=== PATIENT | male | born 1990 | race Caucasian/White ===

== ENCOUNTER 2024-04-14 10:56 | Inpatient (IN) | payer OTHER, MEDICAID, SELFPAY ==
[2024-04-14] VITALS (91 sets, daily range): BP systolic 121–159; BP diastolic 69–107; PULSE 107–137; RESP 6–52; TEMP 36.6–36.8; O2SAT 85–100; BMI 45.1; BMI 44.4
--- NOTE | 2024-04-14 11:13 | EKG_ITS ---
[address] [address] Test Date: 2024-04-14 Pat Name: Roger Mcclelland Department: Room: Gender: Male Media Operator: LAVERN : 1990 Requested By: Order Number: [id number] Reading MD: Jason Chisholm Measurements Intervals [place] Rate: 122 P: 48 [place]: 144 QRS: 68 QRSD: 96 T: 52 QT: 330 QTc: 470 Interpretive Statements Sinus tachycardia Possible Left atrial enlargement Electronically Signed On 04-14-2024 16:28:18 PST by Jason Chisholm
--- NOTE | 2024-04-14 11:15 | ED_ITS ---
HPI - General Adult General Chief complaint: Shortness of Breath/Dyspnea Stated complaint: SOB Abdominal Swelling sent from PCP Time Seen by Provider: 04/14/24 11:12 History of Present Illness HPI narrative: 34-year-old gentleman with a history of alcohol and methamphetamine use disorder, lives on [facility], has no known medical problems and does not take prescription medications. Presents complaining of 2 weeks of sweats, increasing dyspnea including orthopnea, increasing abdominal girth, lower extremity edema. He is not reporting significant headaches, no vomiting, no diarrhea. Has not noticed palpitations does not recognize that his heart rate currently is in the 120 range. Related Data Allergies Allergy/AdvReac Type Severity Reaction Status Date / Time No Known Drug Allergies Allergy Verified 04/14/24 11:08 Review of Systems Review of Systems Narrative: Pertinent positive and negative findings as per HPI Patient History Social History Smoking Status: Unknown if ever smoked Exam Initial Vital Signs Initial Vital Signs: Vital Signs Temperature 97.9 F 04/14/24 11:00 Pulse Rate 128 H 04/14/24 11:00 Respiratory Rate 18 04/14/24 11:00 Blood Pressure 142/84 H 04/14/24 11:00 Pulse Oximetry 100 04/14/24 11:00 Oxygen Delivery Method Room Air 04/14/24 11:00 General: Chronically ill-appearing gentleman BMI of 45 kilos slightly diaphoretic, pale, able to speak in complete sentences, fully cooperative with the exam HEENT: Moist mucous membranes, normal sclera with reactive pupils, Neck: Body habitus makes it difficult to evaluate JVD. He does not have cervical adenopathy Respiratory: Lungs with rhonchi in the right base and scattered wheezes in the apices bilaterally Cardiac: Tachycardic, again body habitus limits exam but I am concerned that he does have soft systolic murmur Abdomen: The anterior abdominal wall is slightly erythematous without being warm to the touch. No tenderness to palpation, not distended Skin: Warm and dry, no rashes or evidence of ?skin picking Neurologic: Grossly neurologically intact with no obvious asymmetries or abnormalities Extremities: No trauma, 2+ lower extremity edema Psych: Cooperative, appropriate insight and affect Course Orders Ordered: ED Orders 04/14/24 11:16 XR chest 1V Stat EKG-12 Lead Stat Measure peak expiratory flow ONCE RT Consult Eval and Treat NOW 04/14/24 11:28 EKG-12 Lead Stat 04/14/24 11:34 Complete Blood Count AUTO DIFF Stat Comprehensive Metabolic Panel Stat D Dimer Stat Lactate (Lactic Acid) Stat Lipase Stat Magnesium Stat NT-proBNP (BNP-Adult 18+) Stat Procalcitonin Stat Prothrombin Time INR Stat Troponin I Stat 04/14/24 11:45 Blood Culture Stat 04/14/24 11:55 Ictotest Urine Stat Urinalysis and Microscopic Stat 04/14/24 14:05 CT angio chest PE protocol Stat Vital Signs Vital signs: Vital Signs - 8 hr 04/14/24 11:00 04/14/24 11:06 04/14/24 11:06 Temperature 97.9 F Pulse Rate 128 H 132 H Respiratory Rate 18 Blood Pressure 142/84 H 142/84 H Pulse Oximetry 100 97 Oxygen Delivery Method Room Air Oxygen Flow Rate 04/14/24 11:10 04/14/24 11:15 04/14/24 11:20 Temperature Pulse Rate 124 H 127 H 128 H Respiratory Rate 16 21 Blood Pressure Pulse Oximetry 98 98 98 Oxygen Delivery Method Oxygen Flow Rate 04/14/24 11:25 04/14/24 11:30 04/14/24 11:35 Temperature Pulse Rate 121 H 122 H 120 H Respiratory Rate 24 14 21 Blood Pressure Pulse Oximetry 98 93 97 Oxygen Delivery Method Oxygen Flow Rate 04/14/24 11:40 04/14/24 11:43 04/14/24 11:43 Temperature Pulse Rate 122 H 118 H Respiratory Rate 9 L 12 Blood Pressure 143/93 H Pulse Oximetry 97 97 Oxygen Delivery Method Oxygen Flow Rate 04/14/24 11:45 04/14/24 11:45 04/14/24 11:50 Temperature Pulse Rate 119 H 117 H Respiratory Rate 13 22 Blood Pressure 141/95 H Pulse Oximetry 97 98 Oxygen Delivery Method Oxygen Flow Rate 04/14/24 11:50 04/14/24 11:55 04/14/24 11:56 Temperature Pulse Rate 137 H 132 H Respiratory Rate Blood Pressure 142/102 H Pulse Oximetry 91 100 Oxygen Delivery Method Oxygen Flow Rate 04/14/24 11:56 04/14/24 12:00 04/14/24 12:01 Temperature Pulse Rate 121 H 122 H Respiratory Rate 33 H 26 H Blood Pressure 143/94 H Pulse Oximetry 98 99 Oxygen Delivery Method Oxygen Flow Rate 04/14/24 12:01 04/14/24 12:05 04/14/24 12:05 Temperature Pulse Rate 121 H Respiratory Rate 17 Blood Pressure 134/88 137/89 Pulse Oximetry 96 Oxygen Delivery Method Oxygen Flow Rate 04/14/24 12:10 04/14/24 12:11 04/14/24 12:11 Temperature Pulse Rate 119 H 121 H Respiratory Rate 17 24 Blood Pressure 144/94 H Pulse Oximetry 96 92 Oxygen Delivery Method Oxygen Flow Rate 04/14/24 12:15 04/14/24 12:15 04/14/24 12:20 Temperature Pulse Rate 120 H Respiratory Rate 15 Blood Pressure 149/95 H 139/90 Pulse Oximetry 95 Oxygen Delivery Method Oxygen Flow Rate 04/14/24 12:20 04/14/24 12:25 04/14/24 12:26 Temperature Pulse Rate 117 H 119 H 117 H Respiratory Rate 25 H 20 36 H Blood Pressure Pulse Oximetry 91 97 87 L Oxygen Delivery Method Oxygen Flow Rate 04/14/24 12:26 04/14/24 12:30 04/14/24 12:30 Temperature Pulse Rate 116 H Respiratory Rate 35 H Blood Pressure 159/102 H 149/89 H Pulse Oximetry 97 Oxygen Delivery Method Oxygen Flow Rate 04/14/24 12:35 04/14/24 12:35 04/14/24 12:40 Temperature Pulse Rate 116 H 117 H Respiratory Rate 23 17 Blood Pressure 143/93 H Pulse Oximetry 85 L 95 Oxygen Delivery Method Oxygen Flow Rate 04/14/24 12:40 04/14/24 12:45 04/14/24 12:48 Temperature Pulse Rate 115 H 118 H Respiratory Rate 23 52 H Blood Pressure 145/89 H Pulse Oximetry 93 96 Oxygen Delivery Method Oxygen Flow Rate 04/14/24 12:48 04/14/24 12:50 04/14/24 12:50 Temperature Pulse Rate 117 H Respiratory Rate 24 Blood Pressure 133/92 H 125/91 H Pulse Oximetry 97 Oxygen Delivery Method Oxygen Flow Rate 04/14/24 12:55 04/14/24 12:55 04/14/24 13:00 Temperature Pulse Rate 113 H 113 H Respiratory Rate 28 H 18 Blood Pressure 125/88 Pulse Oximetry 92 97 Oxygen Delivery Method Oxygen Flow Rate 04/14/24 13:00 04/14/24 13:05 04/14/24 13:05 Temperature Pulse Rate 117 H Respiratory Rate 32 H Blood Pressure 121/85 127/91 H Pulse Oximetry 93 Oxygen Delivery Method Oxygen Flow Rate 04/14/24 13:10 04/14/24 13:11 04/14/24 13:11 Temperature Pulse Rate 115 H 116 H Respiratory Rate 34 H 26 H Blood Pressure 129/88 Pulse Oximetry 89 L 90 L Oxygen Delivery Method Oxygen Flow Rate 04/14/24 13:15 04/14/24 13:15 04/14/24 13:20 Temperature Pulse Rate 115 H 112 H Respiratory Rate 37 H 30 H Blood Pressure 132/95 H Pulse Oximetry 87 L 96 Oxygen Delivery Method Oxygen Flow Rate 04/14/24 13:20 04/14/24 13:25 04/14/24 13:25 Temperature Pulse Rate 115 H Respiratory Rate 35 H Blood Pressure 140/100 H 145/99 H Pulse Oximetry 88 L Oxygen Delivery Method Oxygen Flow Rate 04/14/24 13:30 04/14/24 13:30 04/14/24 13:35 Temperature Pulse Rate 115 H 116 H Respiratory Rate 27 H 41 H Blood Pressure 153/96 H Pulse Oximetry 87 L 91 Oxygen Delivery Method Oxygen Flow Rate 04/14/24 13:36 04/14/24 13:36 04/14/24 13:40 Temperature Pulse Rate 116 H 114 H Respiratory Rate 30 H 35 H Blood Pressure 125/86 Pulse Oximetry 95 94 Oxygen Delivery Method Oxygen Flow Rate 04/14/24 13:40 04/14/24 13:45 04/14/24 13:46 Temperature Pulse Rate 118 H 116 H Respiratory Rate Blood Pressure 129/79 Pulse Oximetry 90 L 92 Oxygen Delivery Method Oxygen Flow Rate 04/14/24 13:46 04/14/24 13:50 04/14/24 13:50 Temperature Pulse Rate 115 H Respiratory Rate Blood Pressure 136/98 H 145/93 H Pulse Oximetry 96 Oxygen Delivery Method Nasal Cannula Oxygen Flow Rate 2 04/14/24 13:55 04/14/24 13:55 04/14/24 14:01 Temperature Pulse Rate 110 H 119 H Respiratory Rate Blood Pressure 146/92 H Pulse Oximetry 92 96 Oxygen Delivery Method Nasal Cannula Nasal Cannula Oxygen Flow Rate 2 2 04/14/24 14:01 04/14/24 14:05 04/14/24 14:06 Temperature Pulse Rate 108 H Respiratory Rate Blood Pressure 151/69 H 134/86 Pulse Oximetry 99 Oxygen Delivery Method Nasal Cannula Oxygen Flow Rate 2 04/14/24 14:06 04/14/24 14:10 04/14/24 14:11 Temperature Pulse Rate 111 H 116 H Respiratory Rate 20 28 H Blood Pressure 131/83 Pulse Oximetry 99 98 Oxygen Delivery Method Nasal Cannula Nasal Cannula Oxygen Flow Rate 2 2 04/14/24 14:11 04/14/24 14:15 04/14/24 14:16 Temperature Pulse Rate 115 H 115 H 115 H Respiratory Rate 16 28 H 37 H Blood Pressure Pulse Oximetry 98 96 96 Oxygen Delivery Method Nasal Cannula Nasal Cannula Nasal Cannula Oxygen Flow Rate 2 2 2 04/14/24 14:16 04/14/24 14:20 04/14/24 14:20 Temperature Pulse Rate 114 H Respiratory Rate 25 H Blood Pressure 138/73 128/82 Pulse Oximetry 97 Oxygen Delivery Method Nasal Cannula Oxygen Flow Rate 2 04/14/24 14:32 04/14/24 14:35 04/14/24 14:40 Temperature Pulse Rate 120 H 116 H 118 H Respiratory Rate 16 32 H Blood Pressure Pulse Oximetry 94 100 98 Oxygen Delivery Method Nasal Cannula Oxygen Flow Rate 2 04/14/24 14:45 04/14/24 14:45 04/14/24 14:51 Temperature Pulse Rate 114 H 115 H Respiratory Rate 19 20 Blood Pressure 136/83 Pulse Oximetry 96 97 Oxygen Delivery Method Oxygen Flow Rate 04/14/24 14:51 04/14/24 14:55 04/14/24 14:55 Temperature Pulse Rate 114 H Respiratory Rate 29 H Blood Pressure 142/86 H 140/95 H Pulse Oximetry 96 Oxygen Delivery Method Oxygen Flow Rate 04/14/24 15:00 04/14/24 15:00 04/14/24 15:06 Temperature Pulse Rate 115 H Respiratory Rate 28 H Blood Pressure 143/92 H 145/106 H Pulse Oximetry 98 Oxygen Delivery Method Oxygen Flow Rate 04/14/24 15:06 04/14/24 15:10 04/14/24 15:10 Temperature Pulse Rate 118 H 118 H Respiratory Rate 22 27 H Blood Pressure 142/91 H Pulse Oximetry 93 99 Oxygen Delivery Method Oxygen Flow Rate 04/14/24 15:15 04/14/24 15:15 04/14/24 15:21 Temperature Pulse Rate 117 H 116 H Respiratory Rate 30 H Blood Pressure 129/92 H Pulse Oximetry 97 95 Oxygen Delivery Method Oxygen Flow Rate 04/14/24 15:21 04/14/24 15:26 04/14/24 15:26 Temperature Pulse Rate 116 H Respiratory Rate 20 Blood Pressure 139/96 H 146/87 H Pulse Oximetry 95 Oxygen Delivery Method Oxygen Flow Rate 04/14/24 15:30 04/14/24 15:31 04/14/24 15:31 Temperature Pulse Rate 115 H 115 H Respiratory Rate 23 27 H Blood Pressure 140/107 H Pulse Oximetry 95 93 Oxygen Delivery Method Oxygen Flow Rate 04/14/24 15:35 04/14/24 15:35 04/14/24 15:40 Temperature Pulse Rate 117 H 116 H Respiratory Rate 25 H 26 H Blood Pressure 142/95 H Pulse Oximetry 96 96 Oxygen Delivery Method Oxygen Flow Rate 04/14/24 15:40 04/14/24 15:45 04/14/24 15:45 Temperature Pulse Rate 116 H Respiratory Rate 19 Blood Pressure 132/91 H 124/86 Pulse Oximetry 98 Oxygen Delivery Method Nasal Cannula Oxygen Flow Rate 2 04/14/24 15:51 04/14/24 15:51 04/14/24 15:55 Temperature Pulse Rate 107 H 111 H Respiratory Rate 30 H 28 H Blood Pressure 130/91 H Pulse Oximetry 97 98 Oxygen Delivery Method Nasal Cannula Nasal Cannula Oxygen Flow Rate 2 2 04/14/24 15:55 04/14/24 16:00 04/14/24 16:00 Temperature Pulse Rate 114 H Respiratory Rate 31 H Blood Pressure 129/79 138/89 Pulse Oximetry Oxygen Delivery Method Oxygen Flow Rate 04/14/24 16:06 04/14/24 16:06 04/14/24 16:10 Temperature Pulse Rate 117 H 115 H Respiratory Rate 27 H 32 H Blood Pressure 131/97 H Pulse Oximetry 98 95 Oxygen Delivery Method Nasal Cannula Nasal Cannula Oxygen Flow Rate 2 2 04/14/24 16:10 04/14/24 16:15 04/14/24 16:15 Temperature Pulse Rate 116 H Respiratory Rate 30 H Blood Pressure 129/85 123/83 Pulse Oximetry 97 Oxygen Delivery Method Nasal Cannula Oxygen Flow Rate 2 Medical Decision Making Lab Data 04/14/24 11:34 04/14/24 11:34 Labs: Lab Results 04/14/24 04/14/24 Range/Units 11:34 11:55 WBC 11.7 H (4.5-11.0) X10^3/uL RBC 4.70 (4.5-5.9) X10^6/uL Hgb 13.0 L (13.5-17.5) g/dL Hct 41.0 (41-53) % MCV 87.4 (80-100) fL MCH 27.7 (26-34) PG MCHC 31.7 (30-36) % RDW 16.9 H (11.6-14.8) % Plt Count 369 (150-400) X10^3/uL Neut % (Auto) 67.6 (50-75) % Lymph % (Auto) 20.5 L (25-40) % [place] % (Auto) 9.7 (3-14) % Eos % (Auto) 1.5 L (2-4) % Baso % (Auto) 0.7 (0-2) % Neut # (Auto) 7900 H (0242-3355) /uL Lymph # (Auto) 2400 (6456-3543) /uL [place] # (Auto) 1100 H (0-900) /uL Eos # (Auto) 200 (0-450) /uL Baso # (Auto) 100 (0-100) /uL PT 14.2 H (9.4-12.5) SECONDS INR 1.3 (0.9-1.3) D-Dimer 1383 H (<500) ng/ml Sodium 139 (137-145) mmol/L Potassium 3.8 (3.4-5.1) mmol/L Chloride 107 (98-107) mmol/L Carbon Dioxide 24 (22-32) mmol/L BUN 20 (9-20) mg/dL Creatinine 1.32 H (0.66-1.25) mg/dL Estimated GFR > 60 (>60) mL/min BUN/Creatinine Ratio 15.2 (6-22) Glucose 108 H (70-100) mg/dL Lactate 1.4 (0.7-2.1) mmol/L Calcium 9.1 (8.4-10.2) mg/dL Magnesium 2.3 (1.6-2.3) mg/dL Total Bilirubin 1.0 (0.2-1.3) mg/dL AST 38 (17-59) IU/L ALT 39 (<50) IU/L Alkaline Phosphatase 87 (38-126) U/L Troponin I 0.015 (0.01-0.034) ng/mL NT-Pro-B Natriuret Pep 8380 H (<125) pg/mL Total Protein 6.7 (6.3-8.2) g/dL Albumin 4.0 (3.5-5.0) g/dL Globulin 2.7 (1.7-4.1) g/dL Albumin/Globulin Ratio 1.5 (1.0-2.8) Lipase 82 (23-300) U/L Procalcitonin 0.081 (<0.5) ng/mL Urine Color Yellow Urine Appearance Clear Urine pH 5.5 (4.5-8.0) Ur Specific [place] 1.025 (1.000-1.035) Urine Protein 1+ H (Negative) Urine Glucose (UA) Negative (Negative) g/dL Urine Ketones Negative (NEGATIVE) Urine Occult Blood Negative (Negative) Urine Nitrate Negative (Negative) Urine Bilirubin 1+ H (NEGATIVE) Ur Bilirubin Confirm Negative (Negative) Urine Urobilinogen 1.0 (0.2) E.U./dL Ur Leukocyte Esterase Negative (NEGATIVE) Urine RBC None seen (0-5/HPF) Urine WBC None seen (0-5/HPF) Ur Squamous Epith Cells None seen (0-5/HPF) Urine Bacteria None seen (None) Urine Mucus 1+ H (Negative) Ur Culture Indicated? Cult not indicated Vol Urine Centrifuged 10ml (spun) Imaging Data CT PE study: Radiologist's Impression: PROCEDURE: CT ANGIO CHEST PE PROTOCOL INDICATIONS: elevated d dimer, tachycardia TECHNIQUE: After the administration of intravenous contrast, 2 mm thick sections acquired from the pulmonary apices to the posterior costophrenic angles. 3-dimensional maximum intensity projection (MIP) coronal and sagittal reformats were then acquired through the thorax. For radiation dose reduction, the following was used: automated exposure control, adjustment of mA and/or kV according to patient size. COMPARISON: [facility], CR, XR CHEST 1V, 04/14/2024, 11:21. FINDINGS: Image quality: Diagnostic. Pulmonary arteries: Pulmonary arteries are normal in size, and demonstrate no intraluminal filling defects to suggest central pulmonary embolism. Lower Neck: No enlarged lymph nodes. Thyroid: No thyroid nodules which require sonographic follow up, per consensus guidelines. Axillae: No enlarged lymph nodes. Chest Wall: Unremarkable. Bones: Unremarkable. Lungs and Pleura: No pneumothorax or left-sided pleural effusions. Small right pericardial effusion No significant consolidation or suspicious nodules but there is a slight degree of generalized alveolar edema. Heart: Heart size is globally enlarged. There is a small pericardial effusion. Thoracic Vessels: No aortic aneurysm. Mediastinum and Briana: No enlarged lymph nodes. Esophagus: No wall thickening. No hiatal hernia. Upper Abdomen: Visualized upper abdomen solid organs and bowel loops appear normal. IMPRESSION: No pulmonary embolus. Global cardiomegaly, mild pulmonary edema, mild pericardial and right pleural effusion. Dictated by: David Brandon M.D. on 04/14/2024 at 14:54 MDM Narrative Medical decision making narrative: CC: Fevers, shortness of breath Complicating co-morbidities: Polysubstance use including opioids, alcohol, methamphetamine Data collected from: patient Social determinants of health that may influence the patients condition: Lives on [facility] Medical records reviewed: None are available Differential considered: Sepsis, right lower lobe pneumonia, congestive heart failure, cardiomyopathy, pericardial effusion, endocarditis, acute liver failure, acute renal failure, pulmonary embolism Exam documented above, pertinent findings include: BMI of 45 kilos speaking in full sentences significant edema to the lower extremities, belly is large but soft and nondistended. Question of systolic ejection murmur, rhonchi right base Lab Test results independently reviewed as above. Pertinent findings: CBC shows no anemia, white count at 11.7 without left shift and normal platelets Chemistries are notable for a creatinine at 1.3 GFR is still greater than 60. ProBNP is elevated at 8308 Troponin is undetectable D-dimer is elevated at 1383 Independently reviewed EKG: Sinus tachycardia at a rate of 122. Repolarization abnormalities, question left atrial enlargement, no acute ischemic findings Imaging studies independently reviewed: Chest x-ray shows no acute pulmonary process CT angiogram does not show pulmonary embolism, he does have cardiomegaly, small pericardial small pleural effusion and interstitial fullness consistent with congestive heart failure Treatments: IV Lasix Re-evaluations: Patient desats with any type of sleeping. Suspect he has significant sleep apnea. Oxygen is placed for comfort. In light of his elevated D-dimer CT angiogram is ordered Discussion: 34-year-old gentleman with increasing shortness of breath examined findings are most consistent with congestive heart failure likely multifactorial but suspect his chronic methamphetamine and alcohol use is contributing. He complains of sweats for the last 2 weeks and I was initially concerned for infectious etiology including endocarditis. Given his lab studies I have less concern for that at this point. There was no evidence of pulmonary embolism, CT angiogram confirms cardiomegaly, small pleural effusion and small pericardial effusion. There is no evidence of consolidative pneumonia sepsis. Possibility of a viral myocarditis is entertained, there was no evidence of acute coronary syndrome currently. His creatinine is minimally elevated with GFR maintained above 60 40 mg of IV Lasix as initiated in the emergency department. Care is reviewed with Dr. Chisholm, hospitalist patient will be admitted for further evaluation of his undifferentiated heart failure. Findings reviewed with the patient in his mother. Patient is agreeable to hospitalization, questions are answered. Discharge Plan Departure Patient Disposition: Admitted As Inpatient Clinical Impression: Pleural effusion, Acute pericardial effusion, Alcohol use disorder, Methamphetamine use disorder, moderate, dependence Acute congestive heart failure Qualifiers: Heart failure type: unspecified Qualified Code(s): I50.9 - Heart failure, unspecified Referrals: Jeb Powers MD [Primary Care Provider] -
--- NOTE | 2024-04-14 11:16 | DI.RAD.S_ITS ---
PROCEDURE: XR CHEST 1V INDICATIONS: Shortness of breath TECHNIQUE: One view of the chest was acquired. COMPARISON: None. FINDINGS: Surgical changes and devices: None. Lungs and pleura: Lungs are clear. No pleural effusions or pneumothorax. Mediastinum: Mediastinal contours appear normal. Heart size is enlarged. Bones and chest wall: No suspicious bony lesions. Overlying soft tissues appear unremarkable. IMPRESSION: No acute pulmonary process. Dictated by: Lizzeth Roman M.D. on 04/14/2024 at 11:58 Approved by: Lizzeth Roman M.D. on 04/14/2024 at 11:58
--- NOTE | 2024-04-14 11:43 | PC.NURSE ---
respiratory therapy called for eval and Juanita RT came and assessed patient.
--- NOTE | 2024-04-14 11:45 | PC.NURSE ---
Patient states that he smoked meth at 6am this morning to help with my breathing. Patient denies other drugs besides meth and marijauna. 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
[2024-04-14 12:01] LABS: Add Manual Diff / Slide Review NO; Basophils Absolute Auto 100 /uL (0-100); Basophils Percent Auto 0.7 % (0-2); Eosinophils Absolute Auto 200 /uL (0-450); Eosinophils Percent Auto 1.5 % (2-4); Lymphocytes Absolute Auto 2400 /uL (1100-4500); Lymphocytes Percent Auto 20.5 % (25-40); Mean Corpuscular HGB Conc 31.7 % (30-36); Mean Corpuscular Hemoglobin 27.7 PG (26-34); Mean Corpuscular Volume 87.4 fL (80-100); Monocytes Absolute Auto 1100 /uL (0-900); Monocytes Percent Auto 9.7 % (3-14); Neutrophils Absolute Auto 7900 /uL (1500-7000); Neutrophils Percent Auto 67.6 % (50-75); Platelet Count 369 X10^3/uL (150-400); Red Cell Distribution Width 16.9 % (11.6-14.8); White Blood Cell Count 11.7 X10^3/uL (4.5-11.0)
[2024-04-14 12:07] LABS: Appearance Urine UA CLEAR; Bilirubin Urine UA 1+ (NEGATIVE); Color Urine UA YELLOW; Glucose Urine UA NEGATIVE (Negative); Ketones Urine UA NEGATIVE (NEGATIVE); Leukocyte Esterase Urine UA NEGATIVE (NEGATIVE); Nitrite Urine UA NEGATIVE (Negative); Occult Blood Urine UA NEGATIVE (Negative); Protein Urine UA 1+ (Negative); Specific Gravity Urine UA 1.025 (1.000-1.035); pH Urine UA 5.5 (4.5-8.0)
[2024-04-14 12:08] LABS: INR 1.3 (0.9-1.3); Prothrombin Time 14.2 SECONDS (9.4-12.5)
[2024-04-14 12:09] LABS: Urine Volume 10mL (spun)
[2024-04-14 12:10] LABS: Ictotest Urine Negative (Negative)
[2024-04-14 12:12] LABS: Bacteria Urine None Seen; Culture Indicated Urine Cult Not Indicated; Mucus Urine 1+ (Negative); RBC Urine None Seen (0-5/HPF); Squamous Epithelial Cell Urine None Seen (0-5/HPF); WBC Urine None Seen (0-5/HPF)
[2024-04-14 12:14] LABS: Lactate (Lactic Acid) 1.4 mmol/L (0.7-2.1)
[2024-04-14 12:15] LABS: Alanine Aminotransferase 39 IU/L (<50); Albumin Globulin Ratio 1.5 (1.0-2.8); Alkaline Phosphatase 87 U/L (38-126); Aspartate Aminotransferase 38 IU/L (17-59); BUN Creatinine Ratio 15.2 (6-22); Blood Urea Nitrogen 20 mg/dL (9-20); Calcium 9.1 mg/dL (8.4-10.2); Carbon Dioxide 24 mmol/L (22-32); Chloride 107 mmol/L (98-107); Estimated Glomerular Filt Rate > 60 mL/min (>60); Globulin 2.7 g/dL (1.7-4.1); Glucose 108 mg/dL (70-100); HEMOLYSIS < 15 (0-50); Lipase 82 U/L (23-300); Magnesium 2.3 mg/dL (1.6-2.3); Potassium 3.8 mmol/L (3.4-5.1); Sodium 139 mmol/L (137-145); Total Protein 6.7 g/dL (6.3-8.2)
[2024-04-14 12:17] LABS: D Dimer 1383 ng/ml (<500)
[2024-04-14 12:24] LABS: NT-proBNP (BNP-Adult 18+) 8380 pg/mL (<125)
[2024-04-14 12:27] LABS: Troponin I 0.015 ng/mL (0.01-0.034)
[2024-04-14 12:31] LABS: Procalcitonin 0.081 ng/mL (<0.5)
--- NOTE | 2024-04-14 14:05 | DI.CT.S_ITS ---
PROCEDURE: CT ANGIO CHEST PE PROTOCOL INDICATIONS: elevated d dimer, tachycardia TECHNIQUE: After the administration of intravenous contrast, 2 mm thick sections acquired from the pulmonary apices to the posterior costophrenic angles. 3-dimensional maximum intensity projection (MIP) coronal and sagittal reformats were then acquired through the thorax. For radiation dose reduction, the following was used: automated exposure control, adjustment of mA and/or kV according to patient size. COMPARISON: [facility], CR, XR CHEST 1V, 04/14/2024, 11:21. FINDINGS: Image quality: Diagnostic. Pulmonary arteries: Pulmonary arteries are normal in size, and demonstrate no intraluminal filling defects to suggest central pulmonary embolism. Lower Neck: No enlarged lymph nodes. Thyroid: No thyroid nodules which require sonographic follow up, per consensus guidelines. Axillae: No enlarged lymph nodes. Chest Wall: Unremarkable. Bones: Unremarkable. Lungs and Pleura: No pneumothorax or left-sided pleural effusions. Small right pericardial effusion No significant consolidation or suspicious nodules but there is a slight degree of generalized alveolar edema. Heart: Heart size is globally enlarged. There is a small pericardial effusion. Thoracic Vessels: No aortic aneurysm. Mediastinum and Briana: No enlarged lymph nodes. Esophagus: No wall thickening. No hiatal hernia. Upper Abdomen: Visualized upper abdomen solid organs and bowel loops appear normal. IMPRESSION: No pulmonary embolus. Global cardiomegaly, mild pulmonary edema, mild pericardial and right pleural effusion. Dictated by: David Brandon M.D. on 04/14/2024 at 14:54 Approved by: David Brandon M.D. on 04/14/2024 at 14:58
--- NOTE | 2024-04-14 14:47 | EKG_ITS ---
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
[2024-04-14] MEDS: FUROSEMIDE 40 MG/4 ML VIAL IV ×2 (17:03→23:46)
--- NOTE | 2024-04-14 17:41 | PM.HP.1 ---
History of Present Illness History of Present Illness Date Patient Seen: 04/14/24 Time Patient Seen: 17:42 Chief complaint: SOB Abdominal Swelling sent from PCP Narrative: From ED provider: 34-year-old gentleman with a history of alcohol and methamphetamine use disorder, lives on [address], has no known medical problems and does not take prescription medications. Presents complaining of 2 weeks of sweats, increasing dyspnea including orthopnea, increasing abdominal girth, lower extremity edema. He is not reporting significant headaches, no vomiting, no diarrhea. Has not noticed palpitations does not recognize that his heart rate currently is in the 120 range. Additional information: The patient lives on [address] with his mother. He notes he uses meth on a fairly regular basis but is not really describing is use his chronic over years. He also drinks in a binge pattern and did drink heavily for about a week 1-1/2 weeks ago. He also notes occasional use of opiates including some Suboxone about a week and a half ago. He was felt off for about 2-1/2 weeks with orthopnea, increased abdominal girth, dyspnea and fatigue on exertion but no chest pain. He was not sure but thought he may have had a virus about 3 weeks ago. He currently has no viral symptoms including rhinorrhea, cough, fevers, or chills. No hematuria or dysuria. No episodes of chest pain. He was never had an echo. He does also smoke cigarettes. He requests a nicotine patch. He describes a past history of anxiety and depression but no other mental health disorders. He was no chronic medical conditions. [facility] Social History Smoking Status: Unknown if ever smoked Meds Home Medications and Allergies Allergies Allergy/AdvReac Type Severity Reaction Status Date / Time No Known Drug Allergies Allergy Verified 04/14/24 11:08 Review of Systems Review of Systems Narrative: All else reviewed and otherwise negative. Exam Vital Signs (past 8 hours): - 04/14/24 11:00 04/14/24 11:06 04/14/24 11:06 Temperature 97.9 F Pulse Rate 128 H 132 H Respiratory Rate 18 Blood Pressure 142/84 H 142/84 H Pulse Oximetry 100 97 Oxygen Delivery Method Room Air Oxygen Flow Rate 04/14/24 11:10 04/14/24 11:15 04/14/24 11:20 Temperature Pulse Rate 124 H 127 H 128 H Respiratory Rate 16 21 Blood Pressure Pulse Oximetry 98 98 98 Oxygen Delivery Method Oxygen Flow Rate 04/14/24 11:25 04/14/24 11:30 04/14/24 11:35 Temperature Pulse Rate 121 H 122 H 120 H Respiratory Rate 24 14 21 Blood Pressure Pulse Oximetry 98 93 97 Oxygen Delivery Method Oxygen Flow Rate 04/14/24 11:40 04/14/24 11:43 04/14/24 11:43 Temperature Pulse Rate 122 H 118 H Respiratory Rate 9 L 12 Blood Pressure 143/93 H Pulse Oximetry 97 97 Oxygen Delivery Method Oxygen Flow Rate 04/14/24 11:45 04/14/24 11:45 04/14/24 11:50 Temperature Pulse Rate 119 H 117 H Respiratory Rate 13 22 Blood Pressure 141/95 H Pulse Oximetry 97 98 Oxygen Delivery Method Oxygen Flow Rate 04/14/24 11:50 04/14/24 11:55 04/14/24 11:56 Temperature Pulse Rate 137 H 132 H Respiratory Rate Blood Pressure 142/102 H Pulse Oximetry 91 100 Oxygen Delivery Method Oxygen Flow Rate 04/14/24 11:56 04/14/24 12:00 04/14/24 12:01 Temperature Pulse Rate 121 H 122 H Respiratory Rate 33 H 26 H Blood Pressure 143/94 H Pulse Oximetry 98 99 Oxygen Delivery Method Oxygen Flow Rate 04/14/24 12:01 04/14/24 12:05 04/14/24 12:05 Temperature Pulse Rate 121 H Respiratory Rate 17 Blood Pressure 134/88 137/89 Pulse Oximetry 96 Oxygen Delivery Method Oxygen Flow Rate 04/14/24 12:10 04/14/24 12:11 04/14/24 12:11 Temperature Pulse Rate 119 H 121 H Respiratory Rate 17 24 Blood Pressure 144/94 H Pulse Oximetry 96 92 Oxygen Delivery Method Oxygen Flow Rate 04/14/24 12:15 04/14/24 12:15 04/14/24 12:20 Temperature Pulse Rate 120 H Respiratory Rate 15 Blood Pressure 149/95 H 139/90 Pulse Oximetry 95 Oxygen Delivery Method Oxygen Flow Rate 04/14/24 12:20 04/14/24 12:25 04/14/24 12:26 Temperature Pulse Rate 117 H 119 H 117 H Respiratory Rate 25 H 20 36 H Blood Pressure Pulse Oximetry 91 97 87 L Oxygen Delivery Method Oxygen Flow Rate 04/14/24 12:26 04/14/24 12:30 04/14/24 12:30 Temperature Pulse Rate 116 H Respiratory Rate 35 H Blood Pressure 159/102 H 149/89 H Pulse Oximetry 97 Oxygen Delivery Method Oxygen Flow Rate 04/14/24 12:35 04/14/24 12:35 04/14/24 12:40 Temperature Pulse Rate 116 H 117 H Respiratory Rate 23 17 Blood Pressure 143/93 H Pulse Oximetry 85 L 95 Oxygen Delivery Method Oxygen Flow Rate 04/14/24 12:40 04/14/24 12:45 04/14/24 12:48 Temperature Pulse Rate 115 H 118 H Respiratory Rate 23 52 H Blood Pressure 145/89 H Pulse Oximetry 93 96 Oxygen Delivery Method Oxygen Flow Rate 04/14/24 12:48 04/14/24 12:50 04/14/24 12:50 Temperature Pulse Rate 117 H Respiratory Rate 24 Blood Pressure 133/92 H 125/91 H Pulse Oximetry 97 Oxygen Delivery Method Oxygen Flow Rate 04/14/24 12:55 04/14/24 12:55 04/14/24 13:00 Temperature Pulse Rate 113 H 113 H Respiratory Rate 28 H 18 Blood Pressure 125/88 Pulse Oximetry 92 97 Oxygen Delivery Method Oxygen Flow Rate 04/14/24 13:00 04/14/24 13:05 04/14/24 13:05 Temperature Pulse Rate 117 H Respiratory Rate 32 H Blood Pressure 121/85 127/91 H Pulse Oximetry 93 Oxygen Delivery Method Oxygen Flow Rate 04/14/24 13:10 04/14/24 13:11 04/14/24 13:11 Temperature Pulse Rate 115 H 116 H Respiratory Rate 34 H 26 H Blood Pressure 129/88 Pulse Oximetry 89 L 90 L Oxygen Delivery Method Oxygen Flow Rate 04/14/24 13:15 04/14/24 13:15 04/14/24 13:20 Temperature Pulse Rate 115 H 112 H Respiratory Rate 37 H 30 H Blood Pressure 132/95 H Pulse Oximetry 87 L 96 Oxygen Delivery Method Oxygen Flow Rate 04/14/24 13:20 04/14/24 13:25 04/14/24 13:25 Temperature Pulse Rate 115 H Respiratory Rate 35 H Blood Pressure 140/100 H 145/99 H Pulse Oximetry 88 L Oxygen Delivery Method Oxygen Flow Rate 04/14/24 13:30 04/14/24 13:30 04/14/24 13:35 Temperature Pulse Rate 115 H 116 H Respiratory Rate 27 H 41 H Blood Pressure 153/96 H Pulse Oximetry 87 L 91 Oxygen Delivery Method Oxygen Flow Rate 04/14/24 13:36 04/14/24 13:36 04/14/24 13:40 Temperature Pulse Rate 116 H 114 H Respiratory Rate 30 H 35 H Blood Pressure 125/86 Pulse Oximetry 95 94 Oxygen Delivery Method Oxygen Flow Rate 04/14/24 13:40 04/14/24 13:45 04/14/24 13:46 Temperature Pulse Rate 118 H 116 H Respiratory Rate Blood Pressure 129/79 Pulse Oximetry 90 L 92 Oxygen Delivery Method Oxygen Flow Rate 04/14/24 13:46 04/14/24 13:50 04/14/24 13:50 Temperature Pulse Rate 115 H Respiratory Rate Blood Pressure 136/98 H 145/93 H Pulse Oximetry 96 Oxygen Delivery Method Nasal Cannula Oxygen Flow Rate 2 04/14/24 13:55 04/14/24 13:55 04/14/24 14:01 Temperature Pulse Rate 110 H 119 H Respiratory Rate Blood Pressure 146/92 H Pulse Oximetry 92 96 Oxygen Delivery Method Nasal Cannula Nasal Cannula Oxygen Flow Rate 2 2 04/14/24 14:01 04/14/24 14:05 04/14/24 14:06 Temperature Pulse Rate 108 H Respiratory Rate Blood Pressure 151/69 H 134/86 Pulse Oximetry 99 Oxygen Delivery Method Nasal Cannula Oxygen Flow Rate 2 04/14/24 14:06 04/14/24 14:10 04/14/24 14:11 Temperature Pulse Rate 111 H 116 H Respiratory Rate 20 28 H Blood Pressure 131/83 Pulse Oximetry 99 98 Oxygen Delivery Method Nasal Cannula Nasal Cannula Oxygen Flow Rate 2 2 04/14/24 14:11 04/14/24 14:15 04/14/24 14:16 Temperature Pulse Rate 115 H 115 H 115 H Respiratory Rate 16 28 H 37 H Blood Pressure Pulse Oximetry 98 96 96 Oxygen Delivery Method Nasal Cannula Nasal Cannula Nasal Cannula Oxygen Flow Rate 2 2 2 04/14/24 14:16 04/14/24 14:20 04/14/24 14:20 Temperature Pulse Rate 114 H Respiratory Rate 25 H Blood Pressure 138/73 128/82 Pulse Oximetry 97 Oxygen Delivery Method Nasal Cannula Oxygen Flow Rate 2 04/14/24 14:32 04/14/24 14:35 04/14/24 14:40 Temperature Pulse Rate 120 H 116 H 118 H Respiratory Rate 16 32 H Blood Pressure Pulse Oximetry 94 100 98 Oxygen Delivery Method Nasal Cannula Oxygen Flow Rate 2 04/14/24 14:45 04/14/24 14:45 04/14/24 14:51 Temperature Pulse Rate 114 H 115 H Respiratory Rate 19 20 Blood Pressure 136/83 Pulse Oximetry 96 97 Oxygen Delivery Method Oxygen Flow Rate 04/14/24 14:51 04/14/24 14:55 04/14/24 14:55 Temperature Pulse Rate 114 H Respiratory Rate 29 H Blood Pressure 142/86 H 140/95 H Pulse Oximetry 96 Oxygen Delivery Method Oxygen Flow Rate 04/14/24 15:00 04/14/24 15:00 04/14/24 15:06 Temperature Pulse Rate 115 H Respiratory Rate 28 H Blood Pressure 143/92 H 145/106 H Pulse Oximetry 98 Oxygen Delivery Method Oxygen Flow Rate 04/14/24 15:06 04/14/24 15:10 04/14/24 15:10 Temperature Pulse Rate 118 H 118 H Respiratory Rate 22 27 H Blood Pressure 142/91 H Pulse Oximetry 93 99 Oxygen Delivery Method Oxygen Flow Rate 04/14/24 15:15 04/14/24 15:15 04/14/24 15:21 Temperature Pulse Rate 117 H 116 H Respiratory Rate 30 H Blood Pressure 129/92 H Pulse Oximetry 97 95 Oxygen Delivery Method Oxygen Flow Rate 04/14/24 15:21 04/14/24 15:26 04/14/24 15:26 Temperature Pulse Rate 116 H Respiratory Rate 20 Blood Pressure 139/96 H 146/87 H Pulse Oximetry 95 Oxygen Delivery Method Oxygen Flow Rate 04/14/24 15:30 04/14/24 15:31 04/14/24 15:31 Temperature Pulse Rate 115 H 115 H Respiratory Rate 23 27 H Blood Pressure 140/107 H Pulse Oximetry 95 93 Oxygen Delivery Method Oxygen Flow Rate 04/14/24 15:35 04/14/24 15:35 04/14/24 15:40 Temperature Pulse Rate 117 H 116 H Respiratory Rate 25 H 26 H Blood Pressure 142/95 H Pulse Oximetry 96 96 Oxygen Delivery Method Oxygen Flow Rate 04/14/24 15:40 04/14/24 15:45 04/14/24 15:45 Temperature Pulse Rate 116 H Respiratory Rate 19 Blood Pressure 132/91 H 124/86 Pulse Oximetry 98 Oxygen Delivery Method Nasal Cannula Oxygen Flow Rate 2 04/14/24 15:51 04/14/24 15:51 04/14/24 15:55 Temperature Pulse Rate 107 H 111 H Respiratory Rate 30 H 28 H Blood Pressure 130/91 H Pulse Oximetry 97 98 Oxygen Delivery Method Nasal Cannula Nasal Cannula Oxygen Flow Rate 2 2 04/14/24 15:55 04/14/24 16:00 04/14/24 16:00 Temperature Pulse Rate 114 H Respiratory Rate 31 H Blood Pressure 129/79 138/89 Pulse Oximetry Oxygen Delivery Method Oxygen Flow Rate 04/14/24 16:06 04/14/24 16:06 04/14/24 16:10 Temperature Pulse Rate 117 H 115 H Respiratory Rate 27 H 32 H Blood Pressure 131/97 H Pulse Oximetry 98 95 Oxygen Delivery Method Nasal Cannula Nasal Cannula Oxygen Flow Rate 2 2 04/14/24 16:10 04/14/24 16:15 04/14/24 16:15 Temperature Pulse Rate 116 H Respiratory Rate 30 H Blood Pressure 129/85 123/83 Pulse Oximetry 97 Oxygen Delivery Method Nasal Cannula Oxygen Flow Rate 2 04/14/24 16:25 04/14/24 16:25 04/14/24 16:30 Temperature Pulse Rate 113 H 116 H Respiratory Rate 24 23 Blood Pressure 135/83 Pulse Oximetry 97 92 Oxygen Delivery Method Oxygen Flow Rate 04/14/24 16:30 04/14/24 16:43 04/14/24 16:43 Temperature Pulse Rate 113 H Respiratory Rate 25 H Blood Pressure 139/87 130/73 Pulse Oximetry 99 Oxygen Delivery Method Oxygen Flow Rate 04/14/24 16:45 04/14/24 17:00 Temperature Pulse Rate 115 H 115 H Respiratory Rate 29 H 12 Blood Pressure Pulse Oximetry 93 97 Oxygen Delivery Method Oxygen Flow Rate Oxygen Delivery Method Nasal Cannula Oxygen Flow Rate 2 Narrative Exam Narrative: NAD, alert and oriented, fluent speech, calm. Normocephalic skull, EOMI, anicteric sclera, symmetric pupils. Oropharynx unremarkable, no droop. Neck supple, midline trachea, no adenopathy. Lungs clear, normal rate and effort. Heart regular, no murmur gallop or rub. Abdomen is soft, non distended and non tender. Extremities: Trace edema. Increased girth of the abdomen and some edema around the hips. Skin is free of rash or lesions. Joints are not swollen or deformed. Judgment appears to be normal. Objective ECG Impression: Rate: 107 P: 48 NC: 186 QRS: -48 QRSD: 100 T: 55 QT: 348 QTc: 464 Interpretive Statements Sinus tachycardia Left anterior fascicular block Minimal voltage criteria for LVH, may be normal variant ( R in aVL ) Septal infarct , age undetermined Imaging Chest x-ray: Radiologist's impression: No acute pulmonary process. CT scan - chest: Radiologist's impression: No pulmonary embolus. Global cardiomegaly, mild pulmonary edema, mild pericardial and right pleural effusion. Labs 04/14/24 11:34 04/14/24 11:34 Labs: Laboratory Results - last 24 hr 04/14/24 04/14/24 11:34 11:55 WBC 11.7 H RBC 4.70 Hgb 13.0 L Hct 41.0 MCV 87.4 MCH 27.7 MCHC 31.7 RDW 16.9 H Plt Count 369 Neut % (Auto) 67.6 Lymph % (Auto) 20.5 L [place] % (Auto) 9.7 Eos % (Auto) 1.5 L Baso % (Auto) 0.7 Neut # (Auto) 7900 H Lymph # (Auto) 2400 [place] # (Auto) 1100 H Eos # (Auto) 200 Baso # (Auto) 100 PT 14.2 H INR 1.3 D-Dimer 1383 H Sodium 139 Potassium 3.8 Chloride 107 Carbon Dioxide 24 BUN 20 Creatinine 1.32 H Estimated GFR > 60 BUN/Creatinine Ratio 15.2 Glucose 108 H Lactate 1.4 Calcium 9.1 Magnesium 2.3 Total Bilirubin 1.0 AST 38 ALT 39 Alkaline Phosphatase 87 Troponin I 0.015 NT-Pro-B Natriuret Pep 8380 H Total Protein 6.7 Albumin 4.0 Globulin 2.7 Albumin/Globulin Ratio 1.5 Lipase 82 Procalcitonin 0.081 Urine Color Yellow Urine Appearance Clear Urine pH 5.5 Ur Specific Pelican 1.025 Urine Protein 1+ H Urine Glucose (UA) Negative Urine Ketones Negative Urine Occult Blood Negative Urine Nitrate Negative Urine Bilirubin 1+ H Ur Bilirubin Confirm Negative Urine Urobilinogen 1.0 Ur Leukocyte Esterase Negative Urine RBC None seen Urine WBC None seen Ur Squamous Epith Cells None seen Urine Bacteria None seen Urine Mucus 1+ H Ur Culture Indicated? Cult not indicated Vol Urine Centrifuged 10ml (spun) Assessment & Plan Assessment & Plan narrative: 1. Acute heart failure with unknown EF, present on admission and active. Differential for etiologies include methamphetamine use, alcohol use, combination, or less likely would be a viral cardiomyopathy. The patient was also at risk for right-sided heart failure with his body habitus. 2. Methamphetamine abuse, present on admission and active. PLAN: -diurese with Lasix 40 IV Q12 -monitor lytes -ECHO to assess EF -troponin, trending -Ativan prn anxiety. -nicotine patch. Full code Anticipate 2MN stay, inpatient status is supported. DISPO: home in 2 days. Time-Based Coding :: 35 min spent with patient and on the chart (including review of chart, obtaining history, exam, reviewing outside data, placing orders, documenting exam and treatment plan, and counseling patient) on 04/14. Quality MIPS - Admit I confirm the patient?s Advance Care Plan is present, Code status is documented, Surrogate decision maker is in patient?s record [If Yes, STOP here]: Yes MIPS - Meds 'Current medications' to include all prescriptions, [id number] products, herbals, cannabis/cannabidiol products, and vitamin/mineral/dietary (nutritional) supplements. I have utilized all available resources to obtain, update, or review the patient?s current medications. [If Yes, STOP here]: Yes
[2024-04-14 19:52] LABS: MRSA (Nasal) PCR NOT DETECTED (Not Detect)
[2024-04-14] MEDS: NICOTINE 21 MG PATCH TOP (20:44)
[2024-04-15] VITALS (52 sets, daily range): BP systolic 120–139; BP diastolic 70–94; PULSE 75–124; RESP 9–44; TEMP 35.3–36.7; O2SAT 89–99
[2024-04-15 04:53] LABS: Alanine Aminotransferase 35 IU/L (<50); Albumin 3.4 g/dL (3.5-5.0); Albumin Globulin Ratio 1.3 (1.0-2.8); Alkaline Phosphatase 72 U/L (38-126); Aspartate Aminotransferase 32 IU/L (17-59); BUN Creatinine Ratio 13.7 (6-22); Blood Urea Nitrogen 18 mg/dL (9-20); Calcium 8.7 mg/dL (8.4-10.2); Carbon Dioxide 27 mmol/L (22-32); Chloride 106 mmol/L (98-107); Estimated Glomerular Filt Rate > 60 mL/min (>60); Globulin 2.7 g/dL (1.7-4.1); Glucose 100 mg/dL (70-100); HEMOLYSIS < 15 (0-50); Potassium 3.7 mmol/L (3.4-5.1); Sodium 137 mmol/L (137-145); Total Protein 6.1 g/dL (6.3-8.2)
[2024-04-15 04:57] LABS: Add Manual Diff / Slide Review NO; Basophils Absolute Auto 200 /uL (0-100); Basophils Percent Auto 2.1 % (0-2); Eosinophils Absolute Auto 300 /uL (0-450); Eosinophils Percent Auto 3.3 % (2-4); Hematocrit 38.4 % (41-53); Hemoglobin 12.3 g/dL (13.5-17.5); Lymphocytes Absolute Auto 2800 /uL (1100-4500); Lymphocytes Percent Auto 29.4 % (25-40); Mean Corpuscular Hemoglobin 27.9 PG (26-34); Mean Corpuscular Volume 87.3 fL (80-100); Monocytes Absolute Auto 900 /uL (0-900); Monocytes Percent Auto 9.6 % (3-14); Neutrophils Absolute Auto 5300 /uL (1500-7000); Neutrophils Percent Auto 55.6 % (50-75); Platelet Count 306 X10^3/uL (150-400); Red Cell Distribution Width 16.8 % (11.6-14.8); White Blood Cell Count 9.5 X10^3/uL (4.5-11.0)
[2024-04-15 05:03] LABS: Troponin I 0.015 ng/mL (0.01-0.034)
[2024-04-15 05:23] LABS: Thyroid Stimulating Hormone 1.27 uIU/mL (0.47-4.68)
[2024-04-15] MEDS: NICOTINE 21 MG PATCH TOP (08:28)
--- NOTE | 2024-04-15 10:00 | DI.ECHO.S_ITS ---
[place] [facility]+ [facility] : : [address] : [address] : : [id number] : : Phone: [phone] Echocardiogram Report + + :Name: ERNST WANG Study Date: 04/15/2024 Height: 71 in : :[facility] ReadingLocation: Weight: 318 lb : : Gender: Male BSA: 2.6 m2 : :: 1990 Age: 34 yrs BP: 139/94 mmHg: :Reason For Study: ACUTE HEART FAILURE : :Ordering Physician: TIFFANY, : :AXEL Hall Performed By: Natalie Rock : :Referring: AXEL ALLEN : + + Interpretation Summary 1) Severely enlarged left ventricle with severely reduced systolic function (EF 10-15%). 2) Mildly enlarged right ventricle with mildly reduced function. 3) There is mild to moderate mitral regurgitation. 4) There is moderate tricuspid regurgitation 5) The right ventricular systolic pressure is estimated to be at least 46 mmHg based on an estimated right atrial pressure of 15 mm Hg. 6) There is a trivial pericardial effusion noted. 7) No prior Echo available for comparison. Procedure: A two-dimensional transthoracic echocardiogram with color flow and Doppler was performed. The study quality was technically adequate. There is no prior echocardiogram noted for this patient. The patient was in sinus tachycardia with heart rates between 97-116 bpm during the exam. Left Ventricle: The left ventricle is severely dilated. The estimated left ventricular end diastolic volume is 241 ml. The estimated left ventricular end diastolic volume indexed to BSA is 93.74ml/m2. There is normal left ventricular wall thickness. The ejection fraction is estimated to be 10-15%. There is moderate to severe global hypokinesis of the left ventricle. Diastolic parameters suggest a restrictive filling pattern consistent with probable significantly elevated filling pressures. Right Ventricle: The right ventricle is mildly dilated. Right ventricular systolic function is mildly reduced. Atria: The left atrium is moderately dilated. Right atrial size is normal. There is no Doppler evidence for an interatrial shunt. Mitral Valve: Mitral valve leaflets appear tented. The mitral valve leaflets appear mildly thickened, but open well. There is mild to moderate mitral regurgitation. Aortic Valve: The aortic valve is trileaflet. The aortic valve opens well. There is no aortic valve stenosis. There is trace aortic regurgitation. Tricuspid Valve: The tricuspid valve is normal in structure but is abnormal in function. There is moderate tricuspid regurgitation. The right ventricular systolic pressure is estimated to be at least 46 mmHg based on an estimated right atrial pressure of 15 mm Hg. Pulmonic Valve: The pulmonic valve leaflets are thin and pliable; valve motion is normal. There is mild pulmonic regurgitation. Great Vessels: The aortic root is normal size. The dimensions of the ascending aorta are normal. The IVC is dilated (diameter is greater than 2.1 cm) and it collapses less than 50% with a sniff. This suggests a high right atrial pressure of 15 mm Hg. Pericardium/ Pleura There is a trivial pericardial effusion noted. There is no pleural effusion. MMode/2D Measurements & Calculations LVIDd: 6.6 cm LVOT diam: 2.8 cm LVIDs: 6.1 cm Ao root diam: 3.0 cm FS: 6.7 % asc Aorta Diam: 3.0 cm EPSS: 2.5 cm Ao Arch Diam (Prox Trans): 3.1 cm IVSd: 0.76 cm LVPWd: 1.1 cm LV ricardo. diameter/BSA (cm/m^2): 2.6 LV sys. diameter/BSA (cm/m^2): 2.4 LA A2 area: 26.4 cm2 RA long axis: 5.9 cm LA A4 area: 28.8 cm2 RA area: 23.3 cm2 LA length (vol): 6.9 cm RA vol: 78.6 ml LA vol: 93.5 ml RA : 30.6 ml/m2 LA vol index: 36.4 ml/m2 IVC diam: 3.1 cm RVD1 (basal): 4.9 cm RVD2 (mid): 3.3 cm TAPSE: 1.8 cm Doppler Measurements & Calculations Ao V2 max: 108.4 cm/sec LVOT Max Dimas: 38.2 cm/sec Ao V2 mean: 80.3 cm/sec LV V1 max P.58 mmHg Ao max P.7 mmHg LV V1 VTI: 4.9 cm Ao mean P.8 mmHg FILIPPO(I,D): 1.6 cm2 Ao V2 VTI: 18.9 cm FILIPPO(V,D): 2.1 cm2 sev ratio: 0.26 FILIPPO indexed to BSA (cm^2/m^2): 0.61 MV E max dimas: 95.1 cm/sec TR max dimas: 276.5 cm/sec MV A max dimas: 28.7 cm/sec TR max P.8 mmHg MV E/A: 3.3 PA V2 max: 70.0 cm/sec Med Peak E' Dimas: 4.0 cm/sec PA V2 mean: 48.1 cm/sec E/E' med: 23.9 PA mean P.0 mmHg Lat Peak E' Dimas: 9.4 cm/sec PA pr(Accel): 41.7 mmHg E/E' lat: 10.1 E/e' average: 17.0 MV dec time: 0.15 sec MR ERO: 0.46 cm2 MR PISA: 6.5 cm2 SV(LVOT): 29.6 ml MR flow rate: 216.4 cm3/sec MR PISA radius: 1.0 cm Reading Physician:01:01 PM
--- NOTE | 2024-04-15 12:10 | CM.DANOTE ---
B DCP Assessment Note Pt is a 34yo M here with HF. PMH of methamphetamine, alcohol, marijuana, and opiate use. 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 Per chart, pt lives on [address] with mother. Per chart, hx of binge drinking and daily meth use prior to hospitalization. Per provider in morning rounds, echo pending. If EF low, anticipate transfer to higher level of care. Per RN, echo results not officially completed at this time but her current understanding of them was that EF anticipated to be pretty low. likely transfer. P: anticipate transfer to higher level of care likely. If not, CM team will continue to follow closely and provide drug/alcohol resources as able/assist with additional DCP needs that may arise. MARIA GUADALUPE Quevedo Discharge Planning/Care Management CM Discharge Assessment Start: 04/15/24 12:08 Freq: Status: Active Protocol: Document 04/15/24 12:08 (Rec: 04/15/24 12:10 [id number]) Discharge Planning Assessment Assigned Diving Supervisor MARIA GUADALUPE Conde DPOA/Assigned Designee Name mother Felix Contact Information [phone] Advance Directives? No History Provided By Patient,Family Member Prior Living Arrangements Mobile home Household Members family Independent with ADL's Yes Is patient alert and oriented? Yes Discharge Plan Transfer to Higher Level of Care Transportation Arrangement anticipate transfer to higher level of care, likely BLS/ALS transport?? Whiteboard Updated in Patient Room with No name and ext. # of Diving Supervisor Review Status In Process Please Provide Date Initial DC 04/15/24 Assessment Was Performed Next Review Type Continued Stay Review
[2024-04-15] MEDS: FUROSEMIDE 40 MG/4 ML VIAL IV (12:12)
[2024-04-15] MEDS: INFLUENZA VACCINE QIV 0.5 ML SYRINGE IM (12:30)
--- NOTE | 2024-04-15 15:07 | PM.PN.1 ---
Subjective Subjective Interval history: 34-year-old male with tobacco dependence, class 3 obesity, daily marijuana use, alcohol abuse, methamphetamine abuse, and opioid use disorder who was admitted yesterday with acute congestive heart failure of unknown etiology. Patient reports he is feeling a bit better today than yesterday. He feels as though his abdomen is less distended. He has been urinating very frequently. He reports a longstanding history of opiate use. He states he limits himself to 3 days in a row of use to avoid withdrawal symptoms. He notes remotely he smoked heroin. He states last year he did have an overdose on fentanyl and received CPR briefly, Narcan, and was life flighted to [facility] in [place]. He was treated in the emergency department and discharged home. He reports he more recently used Suboxone for approximately 12 days but in 3 day increments. He notes over the last 6 months he has been smoking methamphetamines 2 days a week, several times a day. He additionally notes that he binge drinks alcohol. He states he will buy a 15 dollar bottle of liquor which he will typically drink over the course of a day or so. He states he typically has not had withdrawal symptoms from alcohol until this most recent alcohol use. He states in the 2-3 days before hospital admission, he was having tremors. He states those resolved yesterday. He states he does smoke marijuana daily. He also smokes a 3rd a pack of cigarettes daily. Exam Vital Signs (past 8 hours): - 04/15/24 07:15 04/15/24 07:30 04/15/24 07:45 Temperature Pulse Rate 106 H 102 H 97 H Respiratory Rate Blood Pressure Pulse Oximetry 95 99 97 Oxygen Delivery Method Oxygen Flow Rate 04/15/24 08:00 04/15/24 08:00 04/15/24 08:10 Temperature 97.3 F L Pulse Rate 110 H 101 H Respiratory Rate 12 Blood Pressure 133/84 Pulse Oximetry 99 96 99 Oxygen Delivery Method Nasal Cannula Oxygen Flow Rate 2 2 04/15/24 08:15 04/15/24 08:28 04/15/24 08:28 Temperature Pulse Rate 102 H 108 H Respiratory Rate Blood Pressure 139/94 H Pulse Oximetry 98 99 Oxygen Delivery Method Oxygen Flow Rate 04/15/24 08:30 04/15/24 08:45 04/15/24 09:00 Temperature Pulse Rate 108 H 109 H 112 H Respiratory Rate 30 H 18 Blood Pressure Pulse Oximetry 98 98 97 Oxygen Delivery Method Oxygen Flow Rate 04/15/24 09:18 04/15/24 09:30 04/15/24 09:45 Temperature Pulse Rate 121 H 109 H 112 H Respiratory Rate 19 27 H 26 H Blood Pressure Pulse Oximetry 94 96 Oxygen Delivery Method Oxygen Flow Rate 04/15/24 10:24 04/15/24 10:30 04/15/24 10:45 Temperature Pulse Rate 121 H 117 H 110 H Respiratory Rate 16 44 H 17 Blood Pressure Pulse Oximetry Oxygen Delivery Method Oxygen Flow Rate 04/15/24 11:00 04/15/24 11:15 04/15/24 11:30 Temperature Pulse Rate 104 H 113 H 107 H Respiratory Rate 18 9 L 19 Blood Pressure Pulse Oximetry Oxygen Delivery Method Oxygen Flow Rate 04/15/24 11:45 04/15/24 12:00 04/15/24 12:00 Temperature 98.0 F Pulse Rate 101 H 97 H 108 H Respiratory Rate 26 H 20 18 Blood Pressure 120/79 Pulse Oximetry 94 Oxygen Delivery Method Oxygen Flow Rate 0 04/15/24 12:15 04/15/24 12:30 04/15/24 12:45 Temperature Pulse Rate 107 H 102 H 102 H Respiratory Rate 26 H 24 23 Blood Pressure Pulse Oximetry Oxygen Delivery Method Oxygen Flow Rate 04/15/24 13:02 Temperature Pulse Rate 124 H Respiratory Rate Blood Pressure Pulse Oximetry Oxygen Delivery Method Oxygen Flow Rate Oxygen Delivery Method Nasal Cannula Oxygen Flow Rate 0 Narrative Exam Narrative: GEN: Adult male, pleasant, Alert and oriented x 3, NAD HEENT:NC, Face symmetric CHEST: Respiratory excursions symmetric, CTAB CV: Mildly tachycardic with regular rhythm, no M/R/G ABD: Soft, obese, BT present in all 4 quadrants, body habitus limits exam, flank edema noted bilaterally as well as pannicular edema EXTR: warm, well perfused, no C/C, 1+ bilateral lower extremity pitting edema SKIN: warm and dry, no rash NEURO: Alert and oriented x 3, nonfocal Objective Labs 04/15/24 04:20 04/15/24 04:20 Labs: Laboratory Results - last 24 hr 04/14/24 04/15/24 18:09 04:20 WBC 9.5 RBC 4.40 L Hgb 12.3 L Hct 38.4 L MCV 87.3 MCH 27.9 MCHC 32.0 RDW 16.8 H Plt Count 306 Neut % (Auto) 55.6 Lymph % (Auto) 29.4 [place] % (Auto) 9.6 Eos % (Auto) 3.3 Baso % (Auto) 2.1 H Neut # (Auto) 5300 Lymph # (Auto) 2800 [place] # (Auto) 900 Eos # (Auto) 300 Baso # (Auto) 200 H Sodium 137 Potassium 3.7 Chloride 106 Carbon Dioxide 27 BUN 18 Creatinine 1.31 H Estimated GFR > 60 BUN/Creatinine Ratio 13.7 Glucose 100 Calcium 8.7 Magnesium 2.0 Total Bilirubin 1.0 AST 32 ALT 35 Alkaline Phosphatase 72 Troponin I 0.015 Total Protein 6.1 L Albumin 3.4 L Globulin 2.7 Albumin/Globulin Ratio 1.3 TSH 1.27 Nasal Screen MRSA (PCR) Not detected [facility] Social History household members: family Smoking Status: Current every day smoker alcohol intake: current Assessment & Plan Assessment & Plan narrative: 1. Congestive heart failure, acute systolic Echocardiogram was done today and revealed severely enlarged left ventricle with severely reduced systolic function with an EF of 10-15%. Mildly enlarged right ventricle with mildly reduced function. [id number] mitral regurgitation. Moderate tricuspid regurgitation. RVSP is at least 46 mmHg. I did discuss the case with Dr. Pruett who recommended ongoing diuresis here at [facility], as long as the patient remains hemodynamically stable. He advises not to add beta blockade until the patient is euvolemic, and at that time add very low-dose metoprolol. I did fax him a copy of the patient's face sheet and they will set up outpatient follow-up with him for further diagnostics. I did discuss with the patient at length the results of the echocardiogram, things that he will need to do to improve his heart health and changes to his lifestyle that he must initiate an order to help his heart improved. He is very motivated to begin these changes. He is tolerating diuresis at this time. Will add potassium as his potassium level is presently 3.7. 2. Polysubstance abuse Discussed at length with him the cardiac complications related to his recreational drug use. He intends to discontinue his recreational drug use. Encouraged him to work on healthier coping mechanisms. 3. Tobacco dependence Continue nicotine patch 4. Class 3 obesity Also discussed the benefit of weight reduction on his cardiac status. Encouraged him to think of this as entire life changes rather than a goal to achieve in a certain amount of time, and to expect these to be small changes over time, rather than making big changes all at once such that these changes will be sustainable over time. Code status Full Prophylaxis Low Rebecca score. Dispo Pending. Time-Based Coding :: [TOTAL MINUTES] spent with patient and on the chart (including review of chart, obtaining history, exam, reviewing outside data, placing orders, documenting exam and treatment plan, and counseling patient) on [DATE]. Quality VTE Deep Vein Thrombosis/Pulmonary Embolism Present on Admission: No
[2024-04-15] MEDS: POTASSIUM CHLORIDE 20 MEQ TAB PO (17:03)
[2024-04-16] VITALS: BP 128/86; PULSE 109; RESP 20; TEMP 36.4; O2SAT 96
[2024-04-16] MEDS: FUROSEMIDE 40 MG/4 ML VIAL IV (00:02)
[2024-04-16 04:00] VITALS: BP 123/77; PULSE 111; RESP 20; TEMP 36.6; O2SAT 97
[2024-04-16 05:19] LABS: Add Manual Diff / Slide Review NO; Basophils Absolute Auto 100 /uL (0-100); Basophils Percent Auto 1.6 % (0-2); Eosinophils Absolute Auto 500 /uL (0-450); Eosinophils Percent Auto 4.9 % (2-4); Hematocrit 38.8 % (41-53); Hemoglobin 12.5 g/dL (13.5-17.5); Lymphocytes Absolute Auto 2500 /uL (1100-4500); Lymphocytes Percent Auto 27.2 % (25-40); Mean Corpuscular HGB Conc 32.3 % (30-36); Mean Corpuscular Volume 86.6 fL (80-100); Monocytes Absolute Auto 800 /uL (0-900); Monocytes Percent Auto 9.2 % (3-14); Neutrophils Absolute Auto 5300 /uL (1500-7000); Neutrophils Percent Auto 57.1 % (50-75); Platelet Count 326 X10^3/uL (150-400); Red Blood Cell Count 4.48 X10^6/uL (4.5-5.9); Red Cell Distribution Width 16.9 % (11.6-14.8); White Blood Cell Count 9.2 X10^3/uL (4.5-11.0)
[2024-04-16 05:28] LABS: BUN Creatinine Ratio 14.7 (6-22); Blood Urea Nitrogen 19 mg/dL (9-20); Calcium 8.7 mg/dL (8.4-10.2); Carbon Dioxide 28 mmol/L (22-32); Chloride 103 mmol/L (98-107); Estimated Glomerular Filt Rate > 60 mL/min (>60); Glucose 97 mg/dL (70-100); HEMOLYSIS < 15 (0-50); Potassium 3.4 mmol/L (3.4-5.1); Sodium 136 mmol/L (137-145)
[2024-04-16 08:00] VITALS: BP 115/77; PULSE 103; RESP 18; TEMP 36.6; O2SAT 96
[2024-04-16] MEDS: POTASSIUM CHLORIDE 20 MEQ TAB PO ×2 (08:27→09:13)
[2024-04-16] MEDS: NICOTINE 21 MG PATCH TOP (08:27)
[2024-04-16 09:13] VITALS: BP 119/74; PULSE 112
[2024-04-16] MEDS: METOPROLOL ER 25 MG TABLET 12.5 MG PO (09:13)
[2024-04-16 09:54] VITALS: BP 118/73; PULSE 120
--- NOTE | 2024-04-16 13:15 | CM.DPNOTE ---
DC Note Patient discussed in multidisciplinary rounds. Patient has been discharged. Dr Castillo had lengthy conversation with patient about his polysubstance use. Patient denies need for resources; blames his polysubstance use on the actions of those around him . Plan: Discharge home w/family. Close outpatient follow up recommended. Provided priority boarding pass to patient and his family member, both state appreciation. JW
--- NOTE | 2024-04-16 19:53 | P.DS_ITS ---
History of Present Illness History of Present Illness Chief complaint: SOB Abdominal Swelling sent from PCP Narrative: Per history and physical: From ED provider: 34-year-old gentleman with a history of alcohol and methamphetamine use disorder, lives on [facility], has no known medical problems and does not take prescription medications. Presents complaining of 2 weeks of sweats, increasing dyspnea including orthopnea, increasing abdominal girth, lower extremity edema. He is not reporting significant headaches, no vomiting, no diarrhea. Has not noticed palpitations does not recognize that his heart rate currently is in the 120 range. Additional information: The patient lives on [facility] with his mother. He notes he uses meth on a fairly regular basis but is not really describing is use his chronic over years. He also drinks in a binge pattern and did drink heavily for about a week 1-1/2 weeks ago. He also notes occasional use of opiates including some Suboxone about a week and a half ago. He was felt off for about 2-1/2 weeks with orthopnea, increased abdominal girth, dyspnea and fatigue on exertion but no chest pain. He was not sure but thought he may have had a virus about 3 weeks ago. He currently has no viral symptoms including rhinorrhea, cough, fevers, or chills. No hematuria or dysuria. No episodes of chest pain. He was never had an echo. He does also smoke cigarettes. He requests a nicotine patch. He describes a past history of anxiety and depression but no other mental health disorders. He was no chronic medical conditions. Discharge Providers Provider Date of admission: 04/14/24 17:08 Discharge Date: 04/16/24 Primary care physician: Jeb Powers MD Discharge provider: Queta Castillo MD Summary Hospital Course Discharge Diagnosis: 1. Acute systolic congestive heart failure with LV ejection fraction of 10-15% 2. [id number] mitral regurgitation 3. Moderate tricuspid regurgitation 4. Polysubstance abuse, including stimulant abuse (methamphetamines), opioid use disorder, and daily marijuana use 5. Alcohol abuse-binge drinking disorder 6. Tobacco dependence 7. Class 3 obesity 8. Acute hypoxic respiratory failure, present on admission, resolved Hospital Course: 34-year-old male with tobacco dependence, class 3 obesity, daily marijuana use, alcohol abuse, methamphetamine abuse, and opioid use disorder who was admitted with acute congestive heart failure of unknown etiology. He reports a longstanding history of opiate use. He states he limits himself to 3 days in a row of use to avoid withdrawal symptoms. He notes remotely he smoked heroin. He states last year he did have an overdose on fentanyl and received CPR briefly, Narcan, and was life flighted to [facility] in [place]. He was treated in the emergency department and discharged home. He reports he more recently used Suboxone for approximately 12 days but in 3 day increments. He notes over the last 6 months he has been smoking methamphetamines 2 days a week, several times a day. He additionally notes that he binge drinks alcohol. He states he will buy a 15 dollar bottle of liquor which he will typically drink over the course of a day or so. He states he typically has not had withdrawal symptoms from alcohol until this most recent alcohol use. He states in the 2-3 days before hospital admission, he was having tremors. He states those resolved yesterday. He states he does smoke marijuana daily. He also smokes a 3rd a pack of cigarettes daily. He was found to have acute systolic congestive heart failure. He was admitted and diuresed with IV furosemide. He was noted to be significantly tachycardic and did have a supplemental oxygen need of 2 liters/minute initially. He was briefly hypoxic to 85% at one point on oxygen therapy. He was able to wean off of oxygen with ongoing diuresis. Echocardiogram was performed which revealed a severely depressed ejection fraction at 10-15%. Results were discussed with Dr. Pruett who was on-call for Cardiology. As the patient was hemodynamically stable and diuresing well, recommendations were to continue diuresing to euvolemia and then start low-dose metoprolol. If he tolerated that well he could be discharged home with outpatient follow-up with Cardiology for further workup. Patient had achieved near euvolemia on April 16. Was initiated on Toprol-XL 12.5 mg daily. This was initiated in the hospital on the morning of discharge, and he remained normotensive. He was able to ambulate the unit and maintain his saturations and was noted to have no significant symptoms. We had several long discussions regarding the need to discontinue his polysubstance abuse in order to successfully improve his cardiac function. Also discussed the need to find healthier coping strategies. At the time of discharge, he denied chest pain, shortness on breath, nausea, abdominal pain. He had no residual pannus edema or flank edema. He had trace ankle edema and pretibial edema. He is discharged in stable condition. Status at Discharge Cognitive/behavioral status at discharge: at baseline, oriented Functional status at discharge: independent ambulation Overall status at discharge: patient is progressing back to baseline Time Spent with Patient Time spent: Greater than 30 minutes Exam Vital Signs (past 8 hours): Oxygen Delivery Method Room Air Oxygen Flow Rate 0 Narrative Exam Narrative: GEN: Adult male, pleasant, Alert and oriented x 3, NAD HEENT:NC, Face symmetric CHEST: Respiratory excursions symmetric, CTAB CV: Mildly tachycardic with regular rhythm, no M/R/G ABD: Soft, obese, BT present in all 4 quadrants, body habitus limits exam, very mild firmness noted to his lower pannus, otherwise no residual flank or pannicular edema EXTR: warm, well perfused, no C/C, trace bilateral lower extremity pitting edema, 1+ nonpitting edema noted to the upper thighs SKIN: warm and dry, no rash NEURO: Alert and oriented x 3, nonfocal Objective Labs 04/16/24 04:40 04/16/24 04:40 Labs: Laboratory Results - last 24 hr 04/16/24 04:40 WBC 9.2 RBC 4.48 L Hgb 12.5 L Hct 38.8 L MCV 86.6 MCH 28.0 MCHC 32.3 RDW 16.9 H Plt Count 326 Neut % (Auto) 57.1 Lymph % (Auto) 27.2 [place] % (Auto) 9.2 Eos % (Auto) 4.9 H Baso % (Auto) 1.6 Neut # (Auto) 5300 Lymph # (Auto) 2500 [place] # (Auto) 800 Eos # (Auto) 500 H Baso # (Auto) 100 Sodium 136 L Potassium 3.4 Chloride 103 Carbon Dioxide 28 BUN 19 Creatinine 1.29 H Estimated GFR > 60 BUN/Creatinine Ratio 14.7 Glucose 97 Calcium 8.7 Magnesium 2.0 PFSH Social History household members: family Smoking Status: Current every day smoker alcohol intake: current Discharge Plan Discharge Plan Patient Disposition: Home Provider Discharge Comment: 1) Weigh yourself each morning after you wake up and empty your bladder (weigh in your underwear) - write down your weight 2) Call your MD for weight gain of more than 3# in 24 hours or 5# in one week 3) Read labels of all products you use for cooking or eat 4) Ideally abstain from all alcohol. If you feel you need to drink, have a maximum of one glass of red wine weekly 5) Stop using all stimulants (prescription and nonprescription) as well as opiates 6) Monitor your heart rate and blood pressure twice a day before taking your medications -write it down in a log 7) Take all medication as prescribed 8) Follow-up with [facility]iology - call their office on 04/17/24 to schedule a follow up appointment 9) Return to the ER for increased shortness of breath, chest pain, increased edema, palpitations, inability to hold down food/fluids/medications. Discharge orders & Medications Prescriptions: New furosemide 40 mg Tablet 40 mg PO 0800,1700 Qty: 60 0RF Rx Instructions: Hold for systolic blood pressure less than 105 metoprolol succinate 25 mg Tablet Extended Release 24 Hr 12.5 mg PO DAILY Qty: 30 0RF Rx Instructions: Take each morning. Hold for systolic blood pressure less than 110 or heart rate less than 55 potassium chloride [Klor-Con M20] 20 mEq Tablet,Er Particles/Crystals 20 meq PO BIDWM Qty: 60 0RF Follow up/Referrals: Aime Pruett MD [Physician] - 3-5 Days (Acute severe systolic CHF (LVEF 10- 15%)) Jeb Powers MD [Primary Care Provider] - Diet/Activity/Treatments Diet: Low-sodium Diet comment: 2000 cc fluid restriction Activity: As tolerated Oxygen: N/A Visit Report/Discharge Packet Instructions: DI for Heart Failure, Low-Sodium Diet Stand Alone Forms: Congestive Heart Failure, Patient Portal/API, Stroke Signs & Symptoms Discharge Data Primary Care Provider: Jeb Powers Quality VTE Deep Vein Thrombosis/Pulmonary Embolism Present on Admission: No
== END 2024-04-16 11:09 | disposition home or self-care (01) | DRG 194 ==
LOC: ED 17:05 → AC 17:09 → ICU 17:21
PROVIDERS: Family Medicine; Admitting Provider Hospitalist; Emergency Provider Emergency Medicine; PCP Family Medicine; Referring Provider Emergency Medicine; Visit Provider Hospitalist
DX: I50.21 Acute systolic (congestive) heart failure (principal); J96.01 Acute respiratory failure with hypoxia; F17.210 Nicotine dependence, cigarettes, uncomplicated; F15.10 Other stimulant abuse, uncomplicated; E66.813 Obesity, class 3; F11.90 Opioid use, unspecified, uncomplicated; F12.90 Cannabis use, unspecified, uncomplicated; F10.10 Alcohol abuse, uncomplicated; I31.39 Other pericardial effusion (noninflammatory); I34.0 Nonrheumatic mitral (valve) insufficiency; I07.1 Rheumatic tricuspid insufficiency; Z23 Encounter for immunization; Z68.41 Body mass index [BMI] 40.0-44.9, adult
CPT/HCPCS: 36415; 71045; 71275; 80048; 80053; 81001; 83605; 83690; 83735; 83880; 84145; 84443; 84484; 85025; 85379; 85610; 87040; 87797; 90471; 90656; 93005; 93306; 96374; 99285; J1940; Q2038; Q9967

== ENCOUNTER → 2024-05-04 09:11 | Outpatient (CLI) | payer OTHER, MEDICAID, SELFPAY ==
[2024-04-14 18:00] VITALS: BMI 44.4
[2024-05-04 19:43] LABS: BUN Creatinine Ratio 14.6 (6-22); Blood Urea Nitrogen 19 mg/dL (9-20); Carbon Dioxide 24 mmol/L (22-32); Chloride 105 mmol/L (98-107); Cholesterol 135 mg/dL (140-199); Estimated Glomerular Filt Rate > 60 mL/min (>60); Glucose 93 mg/dL (70-100); HDL Cholesterol 41 mg/dL (40-60); HEMOLYSIS < 15 (0-50); LDL Cholesterol Calculated 80 mg/dL (<100); Potassium 4.3 mmol/L (3.4-5.1); Sodium 137 mmol/L (137-145); Triglycerides 69 mg/dL (35-150)
[2024-05-04 19:44] LABS: Add Manual Diff / Slide Review NO; Basophils Absolute Auto 100 /uL (0-100); Basophils Percent Auto 1.4 % (0-2); Eosinophils Absolute Auto 400 /uL (0-450); Eosinophils Percent Auto 4.1 % (2-4); Hematocrit 33.2 % (41-53); Hemoglobin 10.5 g/dL (13.5-17.5); Lymphocytes Absolute Auto 2400 /uL (1100-4500); Lymphocytes Percent Auto 22.7 % (25-40); Mean Corpuscular HGB Conc 31.6 % (30-36); Mean Corpuscular Hemoglobin 26.4 PG (26-34); Mean Corpuscular Volume 83.6 fL (80-100); Monocytes Absolute Auto 1000 /uL (0-900); Monocytes Percent Auto 9.5 % (3-14); Neutrophils Absolute Auto 6700 /uL (1500-7000); Neutrophils Percent Auto 62.3 % (50-75); Platelet Count 272 X10^3/uL (150-400); Red Blood Cell Count 3.97 X10^6/uL (4.5-5.9); Red Cell Distribution Width 17.8 % (11.6-14.8); White Blood Cell Count 10.7 X10^3/uL (4.5-11.0)
[2024-05-04 19:56] LABS: NT-proBNP (BNP-Adult 18+) 4580 pg/mL (<125); Troponin I < 0.012 ng/mL (0.01-0.034)
== END ==
PROVIDERS: PCP Family Medicine; Visit Provider Family Medicine
DX: I50.9 Heart failure, unspecified (principal); I31.39 Other pericardial effusion (noninflammatory); F10.90 Alcohol use, unspecified, uncomplicated; F17.200 Nicotine dependence, unspecified, uncomplicated; F11.20 Opioid dependence, uncomplicated; R00.0 Tachycardia, unspecified; I50.84 End stage heart failure; Z87.09 Personal history of other diseases of the respiratory system; F15.20 Other stimulant dependence, uncomplicated
CPT/HCPCS: 80048; 80061; 83880; 84484; 85025

== ENCOUNTER → 2025-01-25 09:14 | Outpatient (CLI) | payer OTHER, MEDICAID, SELFPAY ==
[2024-04-14 18:00] VITALS: BMI 44.4
[2025-01-25 19:57] LABS: Blood Urea Nitrogen 12 mg/dL (9-20); Calcium 9.3 mg/dL (8.4-10.2); Carbon Dioxide 22 mmol/L (22-32); Chloride 103 mmol/L (98-107); Cholesterol 138 mg/dL (140-199); Estimated Glomerular Filt Rate > 60 mL/min (>60); Glucose 84 mg/dL (70-99); HDL Cholesterol 60 mg/dL (40-60); Potassium 4.0 mmol/L (3.4-5.1); Sodium 136 mmol/L (137-145); Triglycerides 56 mg/dL (35-150)
[2025-01-25 20:01] LABS: HEMOLYSIS 58 (0-50)
[2025-01-25 20:07] LABS: NT-proBNP (BNP-Adult 18+) 4220 pg/mL (<125)
== END ==
PROVIDERS: PCP Family Medicine; Visit Provider Family Medicine
DX: N18.31 Chronic kidney disease, stage 3a (principal); R00.0 Tachycardia, unspecified; F10.90 Alcohol use, unspecified, uncomplicated; I50.84 End stage heart failure
CPT/HCPCS: 80048; 80061; 83880

== ENCOUNTER → 2025-04-17 14:18 | Outpatient (CLI) | payer OTHER, SELFPAY ==
[2024-04-14 18:00] VITALS: BMI 44.4
[2025-04-17 20:09] LABS: Blood Urea Nitrogen 20 mg/dL (9-20); Calcium 9.1 mg/dL (8.4-10.2); Carbon Dioxide 26 mmol/L (22-32); Chloride 99 mmol/L (98-107); Estimated Glomerular Filt Rate > 60 mL/min (>60); Glucose 92 mg/dL (70-99); Potassium 4.0 mmol/L (3.4-5.1); Sodium 136 mmol/L (137-145)
[2025-04-17 20:15] LABS: NT-proBNP (BNP-Adult 18+) 7500 pg/mL (<125)
[2025-04-17 20:35] LABS: TSH w/ Reflex to FT4 2.22 uIU/mL (0.47-4.68)
[2025-04-17 20:42] LABS: Hematocrit 34.7 % (41-53); Hemoglobin 10.6 g/dL (13.5-17.5); Lymphocytes Absolute Auto 2300 /uL (1100-4500); Mean Corpuscular HGB Conc 30.5 % (30-36); Mean Corpuscular Hemoglobin 22.0 PG (26-34); Mean Corpuscular Volume 72.3 fL (80-100); Platelet Count 269 X10^3/uL (150-400)
[2025-04-17 20:44] LABS: Add Manual Diff / Slide Review SLIDE REVIEW
[2025-04-17 21:09] LABS: Anisocytosis 1+
[2025-04-18 08:25] LABS: HEMOLYSIS < 15 (0-50); Iron 30 ug/dL (49-181)
[2025-04-18 08:26] LABS: HEMOLYSIS < 15 (0-50)
[2025-04-18 08:36] LABS: Percent Iron Saturation 7 % (20-50); Total Iron Binding Capacity 448 ug/dL (261-462); Transferrin 429 mg/dL (206-381)
[2025-04-18 09:15] LABS: Vitamin B12 915 pg/mL (239-931)
== END ==
PROVIDERS: PCP Family Medicine; Visit Provider Family Medicine
DX: R06.02 Shortness of breath (principal); D64.9 Anemia, unspecified; N18.31 Chronic kidney disease, stage 3a; I50.84 End stage heart failure; R00.0 Tachycardia, unspecified; F10.90 Alcohol use, unspecified, uncomplicated; F15.20 Other stimulant dependence, uncomplicated
CPT/HCPCS: 80048; 82607; 83540; 83550; 83615; 83880; 84443; 85025; 86880